=== PATIENT | female | born 1990 | race Caucasian/White ===

== ENCOUNTER 2019-11-10 12:27 | Outpatient (CLI) | payer OTHER, SELFPAY ==
[2019-11-10 12:47] LABS: Basophils Percent Auto 0.4 % (0.2-1.2); Eosinophils Absolute Auto 0.2 K/mm3 (0-0.3); Eosinophils Percent Auto 2.4 % (0-4.4); Hematocrit 32.3 % (37.0-47.0); Hemoglobin 10.5 g/dL (12.0-15.0); Immature Granulocyte Absolute 0.06 K/mm3 (0.00-0.031); Immature Granulocyte Percent A 0.8 % (0-0.5); Lymphocytes Absolute Auto 2.04 K/mm3 (0.9-3.2); Lymphocytes Percent Auto 27.8 % (18.3-44.2); Mean Corpuscular HGB Conc 32.5 g/dl (32-36); Mean Corpuscular Hemoglobin 27.9 pg (26-34); Mean Corpuscular Volume 85.9 fl (80-100); Mean Platelet Volume 9.9 fl (7.4-10.4); Monocytes Absolute Auto 0.7 K/mm3 (0.1-0.6); Monocytes Percent Auto 9.8 % (2.6-8.5); Neutrophils Absolute Auto 4.3 K/mm3 (1.3-6.7); Neutrophils Percent Auto 58.8 % (45.5-73.1); Platelet Count Result 267 k/mm3 (150-375); Red Blood Count 3.76 M/mm3 (4.2-5.4); Red Cell Distribution Width 12.8 % (11.5-14.5); White Blood Count 7.4 K/mm3 (4.5-10.0)
[2019-11-12 07:06] LABS: Rapid Plasma Reagin Non-Reactive (NonReactive)
== END 2019-11-10 12:28 | disposition home or self-care (01) ==
PROVIDERS: Visit Provider Obstetrics & Gynecology
DX: Z01.818 Encounter for other preprocedural examination (principal)
CPT/HCPCS: 36415; 85025; 86592; 86850; 86900; 86901

== ENCOUNTER 2019-11-12 09:46 | Inpatient (IN) | payer OTHER, SELFPAY ==
[2019-11-12] VITALS (62 sets, daily range): BP systolic 93–120; BP diastolic 56–90; PULSE 60–152; RESP 11–17; TEMP 36.4–36.7; O2SAT 90–100; BMI 27.3
[2019-11-12] MEDS: LACTATED RINGERS 1,000 ML 125 ML IV CONT ×2 (10:40→11:37)
--- NOTE | 2019-11-12 10:40 | WPDANESEPPF ---
Anes - Initial Pre Proc Eval Procedure: Operation Date: 11/12/19 12:00 Proposed Procedures p Repeat Section - Hola Vázquez MD Date/Time: 11/12/19 10:40 Surgeon: Hola Vázquez MD Pre Op Diagnosis: Scheduled Patient Data Age: 29 Gender: F Height: Weight: Last Vital Signs Pulse 76 11/12/19 10:31 BP 110/70 11/12/19 10:31 Allergies Allergy/AdvReac Type Severity Reaction Status Date / Time No Known Allergies Allergy Unverified 12/02/16 21:44 Home Medications Medication Instructions Recorded Confirmed Type PNV cmb#95-ferrous fumarate-FA 1 tablet PO DAILY 11/09/19 11/09/19 History [] Patient hx anesthesia problems: none Family hx anesthesia problems: none PMFSH Past Medical History Medical History Ex-smoker Surgical History Surgical History (Updated 11/12/19 @ 10:40 by Kalyan Hamilton MD) Previous delivery, delivered Family History Family History Daughter Asthma Mother Depression Social History Social History Substance use: never Gender identity (if verbalized by the patient): Female Spiritual care concerns: No Anes - Eval Final PreProcedure Day of Procedure 11/12/19 10:40 Patient weight: normal Heart: regular rate and rhythm Lungs: clear to auscultation Airway: Mallampati scale class II Neurological: alert and oriented Last oral intake: >/= 8 hours ASA classification: II Emergent: no Anesthetic plan: proceed Anesthesia type and monitoring: regional spinal and standard monitoring Informed Consent: The patient's anesthetic plan and its attendant risks and benefits were discussed with the patient/family/POA. Questions were solicited and answers provided to the satisfaction of the patient/family/POA.
--- NOTE | 2019-11-12 10:48 | LDADM ---
This patient, Tamika Dixon, was admitted to Labor/Delivery/Recovery 119 on 11/12/19 at 09:46. Plans for labor, pain management and were discussed with patient. Patient/family oriented to hospital policies and general routines including ID bracelet, bed and alarms, visiting hours, pain management, procedures, bathroom and other care routines, personal items, smoking policy, room service/diet and guest tray routines, infant security routines, and visiting hours. Patient/Family are encouraged to report perceived risks to care and to ask questions if they do not understand what they are told or what they should do. See OBIX for further documentation.
--- NOTE | 2019-11-12 10:49 | PM.IMHP ---
H&P: HPI History of Present Illness Chief complaint: Scheduled Narrative: Tamika Dixon is a 29 year old female with two previous deliveries presents for repeat section. PNC with Dr Rocha, labs/visits on chart. Discussed/offered tubal, declines. Review of Systems Review of Systems: All systems reviewed & are unremarkable except as noted in HPI and below PMFSH Past Medical History Medical History Ex-smoker Surgical History Surgical History Previous delivery, delivered Family History Family History Daughter Asthma Mother Depression Social History Social History Substance use: never Gender identity (if verbalized by the patient): Female Spiritual care concerns: No Meds Home Medications and Allergies Home Medications Medication Instructions Recorded Confirmed Type PNV cmb#95-ferrous fumarate-FA 1 tablet PO DAILY 11/09/19 11/09/19 History [] Allergies Allergy/AdvReac Type Severity Reaction Status Date / Time No Known Allergies Allergy Unverified 12/02/16 21:44 Vital Signs Vital Signs - 24 hr 11/12/19 10:07 11/12/19 10:16 11/12/19 10:31 Pulse Rate 73 85 76 Blood Pressure 113/76 111/74 110/70 11/12/19 10:46 Pulse Rate 80 Blood Pressure 109/74 Exam Const: General: no acute distress Resp: Auscultation: clear to auscultation bilaterally Cardio: Rate: regular rate Rhythm: regular rhythm GI: Other: FH 39cm. FHT 140 Assessment and Plan Assessment and plan (1) Term : Code(s): Z34.90 - Encounter for supervision of normal , unspecified, unspecified trimester Status: Acute (2) Previous delivery affecting : Code(s): O34.219 - Maternal care for unspecified type scar from previous delivery Status: Acute Additional Plan Repeat delivery.
[2019-11-12 11:54] LABS: Amphetamine Screen Urine Negative (Negative); Barbiturate Screen Urine Negative (Negative); Benzodiazepines Screen Urine Negative (Negative); Cannabinoid Screen Urine Negative (Negative); Cocaine Screen Urine Negative (Negative); Methadone Screen Urine Negative (Negative); Opiate Screen Urine Negative (Negative); Phencyclidine Screen Urine Negative (Negative)
--- NOTE | 2019-11-12 12:37 | P.PCNOB_ITS ---
OB - Delivery Note Procedure Delivery date: 11/12/19 Procedure: Procedures Operation Date: 11/12/19 12:00 <No data on this case meets the specified criteria> Route of delivery: Indication for instrumentation: other (Prior delivery x2) Specimen: No Estimated blood loss (mL): 300 Anesthesia type: Spinal Disposition: PACU Narrative: Patient prepped and draped in usual manner for this procedure. Pfannenstiel incision was made in the lower abdomen and extended to the fascia. Fascia was incised and extended bilaterally the skin incision. Bilaterally the rectus muscles were lifted and knife was used to enter the peritoneum. Bladder flap was developed uterus scored with clear fluid noted. Vertex was delivered with nuchal cord noted x1 and readily reduced. Rest of baby was the difficulty. Cord clamped cut then the manual removal of the placenta occurred. Uterus was exteriorized cleared of membranes and clots and closed using 0 Monocryl suture in a running interlocking manner with good approximation hemostasis noted. Ut erus returned to the abdomen gutters were cleared of serosanguineous fluid and clots and all subfascial tissue was noted be hemostatic. Fascia was approximated 0 Vicryl suture from left angle midline right angle right angle to midline. Subcutaneous tissue approximated using 0 plain suture and jovanni used to approximate skin edges patient are procedure well sent to recovery room stable condition. [place] Baby Weeks of gestation at delivery: 39 Infant gender: Male Weight (pounds): 7 Weight (ounces): 12 presentation: vertex score one minute: 8 score five minutes: 9
--- NOTE | 2019-11-12 13:32 | SUR.PHASEI ---
1310--reported PVC's to anesthesia. O2 administered.
--- NOTE | 2019-11-12 13:33 | SUR.PHASEI ---
1325 Reported frequent PVC's to anesthesia. Requested lead change. VSS. pt asymptomatic and holding , chatting with FOB.
[2019-11-12] MEDS: LORATADINE 10 MG TABLET PO (13:53)
[2019-11-12] MEDS: OXYTOCIN 30 UNITS/NS 500 ML 30 UNITS/500 ML BAG 125 UNITS (13:53)
[2019-11-12] MEDS: KETOROLAC 30 MG/ML VIAL (*BKC) IV PUSH (15:30)
[2019-11-12] MEDS: DEXTROSE 5%/0.45% SOD CHL 1,000 ML 125 ML IV CONT (17:59)
[2019-11-13] MEDS: ACETAMINOPHEN 325 MG TABLET 650 MG PO ×2 (00:10→06:53)
[2019-11-13 01:00] VITALS: BP 106/62; PULSE 83; RESP 14; TEMP 37; O2SAT 100
[2019-11-13 04:39] LABS: Basophils Percent Auto 0.3 % (0.2-1.2); Eosinophils Absolute Auto 0.1 K/mm3 (0-0.3); Eosinophils Percent Auto 1.3 % (0-4.4); Hematocrit 27.6 % (37.0-47.0); Hemoglobin 8.9 g/dL (12.0-15.0); Immature Granulocyte Absolute 0.04 K/mm3 (0.00-0.031); Immature Granulocyte Percent A 0.4 % (0-0.5); Lymphocytes Absolute Auto 1.49 K/mm3 (0.9-3.2); Lymphocytes Percent Auto 14.3 % (18.3-44.2); Mean Corpuscular HGB Conc 32.2 g/dl (32-36); Mean Corpuscular Hemoglobin 27.9 pg (26-34); Mean Corpuscular Volume 86.5 fl (80-100); Monocytes Absolute Auto 0.8 K/mm3 (0.1-0.6); Monocytes Percent Auto 7.8 % (2.6-8.5); Neutrophils Absolute Auto 7.9 K/mm3 (1.3-6.7); Neutrophils Percent Auto 75.9 % (45.5-73.1); Platelet Count Result 207 k/mm3 (150-375); Red Blood Count 3.19 M/mm3 (4.2-5.4); Red Cell Distribution Width 12.9 % (11.5-14.5); White Blood Count 10.4 K/mm3 (4.5-10.0)
[2019-11-13 05:05] VITALS: BP 107/61; PULSE 72; RESP 16; TEMP 37; O2SAT 99
[2019-11-13] MEDS: POLYSACCHARIDE IRON COMPLEX 150 MG CAPSULE PO ×2 (06:53→16:29)
[2019-11-13] MEDS: IBUPROFEN 600 MG TABLET PO ×3 (06:54→19:34)
[2019-11-13] MEDS: SIMETHICONE 80 MG TAB.CHEW PO ×2 (06:54→16:28)
[2019-11-13] MEDS: DOCUSATE SODIUM 100 MG CAPSULE PO ×2 (06:54→16:29)
[2019-11-13 06:56] VITALS: BP 109/63; PULSE 72; RESP 18; TEMP 36.6; O2SAT 100
--- NOTE | 2019-11-13 07:45 | WPDANLDPN2 ---
Anes-Prog Note L&D Date/Time: 11/13/19 07:45 Comfortable throughout: section Neuraxial method: spinal Epidural/Spinal procedure site: clean & non-tender Neuro status: Neuro function grossly intact. Cardiovascular status: normal Respiratory status: normal Airway patency: baseline Mental status: baseline Post-Op hydration status: normal Vital Signs: Last Vital Signs Temp 36.6 C 11/13/19 06:56 Pulse 72 11/13/19 06:56 Resp 18 11/13/19 06:56 BP 109/63 11/13/19 06:56 Pulse Ox 100 11/13/19 06:56 I/O: Intake & Output 11/12/19 11/12/19 11/13/19 15:59 23:59 07:59 Intake Total 1100 1300 Output Total 100 1600 Balance 1000 -300 Post-procedural complaints: none Patient feedback: Patient satisfied with anesthetic care.
--- NOTE | 2019-11-13 07:45 | WPDANLDNPN2 ---
Anes-Prog Note L&D-Neuraxial Date/Time: 11/13/19 07:45 Neuraxial medications: intrathecal PF morphine Opiod-related complaints: none Patient feedback: Patient satisfied with post-operative pain management.
--- NOTE | 2019-11-13 08:53 | PM.OBDSVD ---
DS: Diagnosis Admitting Diagnosis Admitting Diagnosis: Encounter for supervision of normal , unspecified, unspecified trimester OB - DS: Summary OB Procedures : None OB Procedures Intrapartum: OB Procedures: : None Peripartum Data Procedures: Procedures Operation Date: 11/12/19 12:00 Actual Procedures Side Surgeon p Repeat Section Not Applicable Hola Vázquez MD Time Spent with Patient Time attestation: Total time spent providing and/or coordinating discharge services: DS: Data Data Completed and Pending Labs on day of discharge: Labs from last 24 hours 11/13/19 11/12/19 04:20 11:23 WBC 10.4 H RBC 3.19 L Hgb 8.9 L Hct 27.6 L MCV 86.5 MCH 27.9 MCHC 32.2 RDW 12.9 Plt Count 207 MPV 10.0 Immature Gran % (Auto) 0.4 Neut % (Auto) 75.9 H Lymph % (Auto) 14.3 L [place] % (Auto) 7.8 Eos % (Auto) 1.3 Baso % (Auto) 0.3 Lymph # (Auto) 1.49 [place] # (Auto) 0.8 H Eos # (Auto) 0.1 Baso # (Auto) 0.0 Abs Immat Gran (auto) 0.04 H Absolute Neuts (auto) 7.9 H Absolute Nucleated RBC 0.0 Nucleated RBC % 0.0 Urine Opiates Screen Negative Urine Methadone Screen Negative Ur Barbiturates Screen Negative Ur Phencyclidine Scrn Negative Ur Amphetamine Screen Negative U Benzodiazepines Scrn Negative Urine Cocaine Screen Negative U Cannabinoids Screen Negative Discharge Plan Discharge Discharging Clinician: Hola Vázquez Patient Disposition: Home, Self-Care Activity: as tolerated Diet: as tolerated Wound Care Instructions: incision open to air Discharge Instructions: office tuesday for staple removal Patient Instructions: Antibiotic Form Stand Alone Forms: General Discharge Information Follow-up/Referrals: Hola Vázquez MD [Physician] - 3 Weeks Discharge Medications: New hydrocodone-acetaminophen 5-325 mg Tablet 1 tablet PO Q3H PRN (Reason: Moderate Pain (4-6)) Qty: 20 RF: 0 ibuprofen 600 mg Tablet 600 mg PO Q6H PRN (Reason: Cramping) Qty: 30 RF: 0 Continued PNV cmb#95-ferrous fumarate-FA [] 28 mg iron- 800 mcg Tablet 1 tablet PO DAILY RF: 0 Date of admission: 11/12/19 09:46 Primary Care Provider: UNKNOWN,DOCTOR Admitting Provider: Hola Vázquez Attending physician on admission: Hola Vázquez
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
[2019-11-13 11:30] VITALS: BP 109/71; PULSE 84; RESP 18; TEMP 36.8; O2SAT 99
[2019-11-13 12:00] VITALS: BP 110/61; PULSE 93; RESP 18; TEMP 36.7; O2SAT 100
[2019-11-13 19:50] VITALS: BP 105/67; PULSE 84; RESP 16; TEMP 36.9; O2SAT 98
[2019-11-14] MEDS: IBUPROFEN 600 MG TABLET PO ×2 (01:14→07:01)
[2019-11-14] MEDS: DOCUSATE SODIUM 100 MG CAPSULE PO (06:59)
[2019-11-14] MEDS: SIMETHICONE 80 MG TAB.CHEW PO (06:59)
[2019-11-14] MEDS: POLYSACCHARIDE IRON COMPLEX 150 MG CAPSULE PO (07:01)
[2019-11-14 07:09] VITALS: BP 125/76; PULSE 79; RESP 18; TEMP 36.4; O2SAT 100
--- NOTE | 2019-11-14 07:21 | PC.NURSE ---
Patient viewed the discharge video Mother & Baby Care, The First Two Weeks . Patient was given the opportunity and encouraged to ask questions. Patient verbalized understanding of information shared and has been given the mother/baby guide for home reference.
--- NOTE | 2019-11-14 09:27 | PM.OBDSVD ---
DS: Diagnosis Admitting Diagnosis Admitting Diagnosis: Encounter for supervision of normal , unspecified, unspecified trimester OB - DS: Summary OB Procedures : None OB Procedures Intrapartum: OB Procedures: : None Peripartum Data Procedures: Procedures Operation Date: 11/12/19 12:00 Actual Procedures Side Surgeon p Repeat Section Not Applicable Hola Vázquez MD Time Spent with Patient Time attestation: Total time spent providing and/or coordinating discharge services: Discharge Plan Discharge Consulting providers: Aquiles Palmer Discharging Clinician: Hola Vázquez Patient Disposition: Home, Self-Care Activity: as tolerated Diet: as tolerated Wound Care Instructions: incision open to air Discharge Instructions: office tuesday for staple removal Education: Mom and Baby Guide Given to: Mother Follow-Up: Call your delivering provider's office for an appointment to be seen in: 3 Week Mom and baby should come to the [facility] for the follow-up appointment. Appointment Date/Time: November 15, 2019 at 11:00 am What to expect at your follow-up visit: Blood Pressure Check Physical Assessment Removal of Reshma Call [phone] if you are unable to keep your appointment time. BREAST CARE: 1. Wear a snug supportive bra Bottle Feeding: A. May apply ice packs ABDOMINAL INCISION: (if applicable) 1. Allow incision to air dry 2. Do NOT use lotions for powders on your incision 3. When showering, allow soap and water to run over the incision, but do not wash incision PERINEAL CARE: 1. Until bleeding stops, use your gabriel bottle after urinating 2. Change your pad frequently throughout the day 3. You may take sitz baths several times a day (fill your bathtub with warm water and soak for 20 minutes.) Do NOT bathe in the water 4. No tub baths until seen by your physician - You may shower ACTIVITY: 1. Rest as much as possible. 2. Do not exercise or lift anything heavier than your baby (such as laundry or other children.) 3. Avoid stairs or driving as much as possible. 4. Do not put anything into the vagina. No douching, tampons, or sexual activity until seen by physician. NOTIFY PHYSICIAN IF YOU HAVE ANY QUESTIONS OR IF ANY OF THE FOLLOWING SYMPTOMS OCCUR: 1. If your incision becomes red, swollen, or more painful than what you have experienced in the hospital. 2. If your vaginal bleeding becomes foul smelling. 3. If your vaginal bleeding becomes more heavy than a period or if your bleeding changes from pink to bright red. However, you may pass an occasional walnut-sized clot once or twice for the first week . 4. If you experience a sharp, shooting pain in you calves. 5. If you discover a hard, reddened area on your breast or if you experience flu-like symptoms. DIET: 1. Eat regular, well-balanced meals. 2. Drink plenty of fluids daily. If , drink to thirst. Stand Alone Forms: General Discharge Information Follow-up/Referrals: Hola Vázquez MD [Physician] - 3 Weeks Discharge Medications: New hydrocodone-acetaminophen 5-325 mg Tablet 1 tablet PO Q3H PRN (Reason: Moderate Pain (4-6)) Qty: 20 RF: 0 ibuprofen 600 mg Tablet 600 mg PO Q6H PRN (Reason: Cramping) Qty: 30 RF: 0 Continued PNV cmb#95-ferrous fumarate-FA [] 28 mg iron- 800 mcg Tablet 1 tablet PO DAILY RF: 0 Date of admission: 11/12/19 09:46 Primary Care Provider: PHYSICIAN,FLIGHT ENGINEER MANAGER Admitting Provider: Hola Vázquez Attending physician on admission: Hola Vázquez
--- NOTE | 2019-11-14 09:41 | PC.NURSE ---
Self care and infant care discharge instructions given to pt. including follow up instructions. Pt. verbalized understanding. No questions or concerns voiced. Very pleasant and cooperative. FOB at side.
[2019-11-16 11:02] VITALS: BP 114/78; PULSE 77; RESP 16; TEMP 37.4; O2SAT 99
== END 2019-11-14 12:17 | disposition home or self-care (01) | DRG 540 ==
LOC: ANHLDR 09:52 → ANHOB2 15:04
PROVIDERS: Admitting Provider Obstetrics & Gynecology; Visit Provider Obstetrics & Gynecology
PROC: 10D00Z1 Extraction of Products of Conception, Low, Open Approach (ICD-10-PCS; CPT 59514; principal; 2019-11-12 12:00)
DX: O34.211 Maternal care for low transverse scar from previous cesarean delivery (principal); Z37.0 Single live birth; Z3A.39 39 weeks gestation of pregnancy
CPT/HCPCS: 36415; 80307; 85025; A9270; J0131; J1885; J2274; J2590; J3010; J7120

== ENCOUNTER 2022-03-21 12:33 | Emergency (ER) | payer OTHER, SELFPAY ==
[2022-03-21] VITALS (13 sets, daily range): BP systolic 103–135; BP diastolic 61–77; PULSE 77; RESP 16; TEMP 36.7; O2SAT 97–100
--- NOTE | ~2022-03-21 | US_ITS ---
US OB <= 14 weeks fetus DATE: 03/21/2022 13:42 INDICATION: Vaginal bleeding TECHNIQUE: Real-time imaging via transabdominal approach COMPARISON: None FINDINGS: The uterus measures approximately 9.6 cm height, up to approximately 4.9 cm AP dimension. A normally shaped intrauterine gestational sac is identified, with single pole. However, no feta l cardiac motion is demonstrated. [place]-rump length measures 1.75 cm Tomosynthesis with estimated gestational age of 8 weeks 1 days +/- 5 days . No pelvic mass or abnormal pelvic fluid collection is detected. IMPRESSION: Absence of cardiac motion, consistent with demise at estimated gestational ag e of 8 weeks 1 day +/- 5 days Reviewed, dictated and finalized at [facility] Reviewed, dictated and finalized at [facility]. IMPRESSION: Absence of cardiac motion, consistent with demise at es timated gestational age of 8 weeks 1 day +/- 5 days
[2022-03-21 13:08] LABS: Basophils Percent Auto 0.3 % (0.2-1.2); Eosinophils Absolute Auto 0.2 K/mm3 (0-0.3); Eosinophils Percent Auto 1.6 % (0-4.4); Hemoglobin 13.4 g/dL (12.0-15.0); Immature Granulocyte Absolute 0.04 K/mm3 (0.00-0.031); Immature Granulocyte Percent A 0.3 % (0-0.5); Lymphocytes Percent Auto 19.9 % (18.3-44.2); Mean Corpuscular HGB Conc 33.5 g/dl (32-36); Mean Corpuscular Hemoglobin 30.9 pg (26-34); Mean Corpuscular Volume 92.4 fl (80-100); Mean Platelet Volume 9.9 fl (7.4-10.4); Monocytes Absolute Auto 0.7 K/mm3 (0.1-0.6); Monocytes Percent Auto 5.4 % (2.6-8.5); Neutrophils Absolute Auto 8.7 K/mm3 (1.3-6.7); Neutrophils Percent Auto 72.5 % (45.5-73.1); Platelet Count Result 251 k/mm3 (150-375); Red Blood Count 4.33 M/mm3 (4.2-5.4); Red Cell Distribution Width 13.3 % (11.5-14.5); White Blood Count 12.1 K/mm3 (4.5-10.0)
--- NOTE | 2022-03-21 13:12 | ED.FEMALEGU ---
HPI - Female Genitourinary General Chief complaint: Vaginal Bleeding Stated complaint: 11weeks and bleeding. Time Seen by Provider: 03/21/22 13:07 Source: patient and RN notes reviewed Mode of arrival: ambulatory Limitations: no limitations History of Present Illness HPI Narrative: 31 years old white female drove herself to the emergency room because of vaginal bleeding and started prior to arrival to the emergency room. Patient reports lower abdominal cramps all night long. Patient is 11 weeks , 4 para 3 0. History of anxiety, she does smoke and uses marijuana, denies drinking. Related Data Home Medications Medication Instructions Recorded Confirmed vit no.95-ferrous 1 tablet PO DAILY 11/09/19 03/02/22 fumarate 28 mg-folic acid 800 mcg tablet () Allergies Allergy/AdvReac Type Severity Reaction Status Date / Time No Known Allergies Allergy Unverified 03/02/22 08:55 Review of Systems Review of Systems: All systems reviewed & are unremarkable except as noted in HPI and below PMFSH Past Medical History Medical History Depression Ex-smoker Trichomonas vaginalis (TV) infection Surgical History Surgical History History of 03/31/11 primary--umbilical cord around head 08/11/12 rpt c/s 11/12/19 rpt c/s Family History Family History Daughter Asthma Mother Depression Grandparent Hypertension paternal grandfather Malignant tumor of ovary paternal grandmother Social History Social History Smoking status: Current every day smoker Tobacco type: cigarettes Alcohol intake: never Substance use: current Substance use type: marijuana Other substance usage details: daily Additional living arrangements comments: Additional occupation/education comments: daycare Gender identity (if verbalized by the patient): Female Sexual Orientation (if Verbalized by the Patient): Bisexual Spiritual care concerns: No Exam Narrative: General appearance: Well-developed, well-nourished Skin: Normal color Head: Normocephalic, nontraumatic Eyes: Clear conjunctiva ENT: Oropharynx normal, ears normal, nose normal Neck: Supple, nontender Chest and respiratory: Airway patent, no respiratory distress, no accessory muscle use Heart: Regular rate/rhythm Abdomen: Soft, nontender, no organomegaly, quiet bowel sounds Vascular: Normal peripheral pulses, normal capillary refill. Musculoskeletal: Normal range of motion, nontender back Neurologic: Alert and oriented ?3, WOOL MIXER is normal as tested, no gross motor deficit : External Female Exam: normal external appearance Speculum Exam - Vagina: normal appearance of the vagina and vaginal bleeding (For long Q-tips, fully saturated with blood, slight blood leaking out ) Speculum Exam - Cervix: normal appearance of the cervix and Cervical os closed Bimanual Exam- Adnexa, other: no masses Course Consultations Consultation #1: Dr. Biggs Date: 03/21/22 Time: 14:45 Vital Signs Vital signs: Vital Signs Temperature 36.7 C 03/21/22 12:38 Pulse Rate 77 03/21/22 12:38 Respiratory Rate 16 03/21/22 12:38 Blood Pressure 135/77 03/21/22 12:38 Pulse Oximetry 100 03/21/22 12:38 Oxygen Delivery Room Air 03/21/22 12:38 Temperature 36.7 C 03/21/22 12:38 Pulse Rate 77 03/21/22 12:38 Respiratory Rate 16 03/21/22 12:38 Blood Pressure 135/77 03/21/22 12:38 Pulse Oximetry
[2022-03-21] MEDS: SODIUM CHLORIDE 0.9% IV 1,000 ML 999 ML IV CONT (14:52)
== END 2022-03-21 16:19 | disposition home or self-care (01) ==
PROVIDERS: Emergency Provider Emergency Medicine
DX: O03.4 Incomplete spontaneous abortion without complication (principal); Z3A.11 11 weeks gestation of pregnancy; O99.321 Drug use complicating pregnancy, first trimester; F12.90 Cannabis use, unspecified, uncomplicated; O99.330 Smoking (tobacco) complicating pregnancy, unspecified trimester; F17.210 Nicotine dependence, cigarettes, uncomplicated
CPT/HCPCS: 36415; 76801; 84702; 85025; 85461; 96360; 99284; J7030

== ENCOUNTER 2022-04-02 01:41 | Day surgery (SDC) | payer OTHER, SELFPAY ==
[2022-03-29 15:14] VITALS: BMI 20.1
--- NOTE | 2022-04-02 08:00 | P.PNAN_ITS ---
Anes - Initial Pre Proc Eval Procedure: Operation Date: 04/02/22 12:00 Proposed Procedures p Suction Dilation and Curettage - Hola Vázquez MD Date/Time: 04/02/22 08:00 Surgeon: Hola Vázquez MD Pre Op Diagnosis: Missed AB Patient Data Age: 31 Gender: F Height: 1.57 m Weight: 50 kg Allergies Allergy/AdvReac Type Severity Reaction Status Date / Time No Known Allergies Allergy Unverified 04/02/22 10:24 Home Medications Medication Instructions Recorded Confirmed Type No Home Medications 03/29/22 04/02/22 History Patient hx anesthesia problems: none Family hx anesthesia problems: none Results Review: All pre-operative results and documents have been reviewed as part of the pre- operative evaluation. [facility] Past Medical History Medical History Depression Ex-smoker Trichomonas vaginalis (TV) infection Surgical History Surgical History History of 03/31/11 primary--umbilical cord around head 08/11/12 rpt c/s 11/12/19 rpt c/s Family History Family History Daughter Asthma Mother Depression Grandparent Hypertension paternal grandfather Malignant tumor of ovary paternal grandmother Social History Social History Smoking packs per day: 0.5 Smoking cigarettes per day: 10.0 Years smoked: 15 Smoking pack-years: 7.50 Smoking status: Current every day smoker Tobacco type: cigarettes Alcohol intake: never Substance use: never Substance use type: marijuana Other substance usage details: daily Living arrangements: with family Additional living arrangements comments: Additional occupation/education comments: daycare Gender identity (if verbalized by the patient): Female Sexual Orientation (if Verbalized by the Patient): Bisexual Spiritual care concerns: No Anes - Eval Final PreProcedure Day of Procedure 04/02/22 08:00 Patient weight: normal Heart: regular rate and rhythm Lungs: clear to auscultation Airway: Mallampati scale class II Neurological: alert and oriented Last oral intake: >/= 8 hours ASA classification: II Emergent: no Anesthetic plan: proceed Anesthesia type and monitoring: general LMA and standard monitoring Results Review: All pre-operative results and documents have been reviewed as part of the pre- operative evaluation. Informed Consent: The patient's anesthetic plan and its attendant risks and benefits were discussed with the patient/family/POA. Questions were solicited and answers provided to the satisfaction of the patient/family/POA.
--- NOTE | 2022-04-02 08:49 | PM.IMHP ---
H&P: HPI History of Present Illness Date/Time: 04/02/22 08:49 31-year-old 4 para 3 0 now 1 3 female presents for surgical management of incomplete miscarriage. Was seen emergency room last week with 8 week intrauterine no cardiac activity, has significant bleeding cramping and likely passed the bulk of the tissue in the next 48hours. Has continue with cramping and bleeding since that time and therefore presents today for uterine evacuation. Chief Complaint: Incomplete miscarriage in the 1st trimester Review of Systems Review of Systems: All systems reviewed & are unremarkable except as noted in HPI and below PMFSH Past Medical History Medical History Depression Ex-smoker Trichomonas vaginalis (TV) infection Surgical History Surgical History History of 03/31/11 primary--umbilical cord around head 08/11/12 rpt c/s 11/12/19 rpt c/s Family History Family History Daughter Asthma Mother Depression Grandparent Hypertension paternal grandfather Malignant tumor of ovary paternal grandmother Social History Social History Smoking packs per day: 0.5 Smoking cigarettes per day: 10.0 Years smoked: 15 Smoking pack-years: 7.50 Smoking status: Current every day smoker Tobacco type: cigarettes Alcohol intake: never Substance use: never Substance use type: marijuana Other substance usage details: daily Living arrangements: with family Additional living arrangements comments: Additional occupation/education comments: daycare Gender identity (if verbalized by the patient): Female Sexual Orientation (if Verbalized by the Patient): Bisexual Spiritual care concerns: No Meds Home Medications and Allergies Home Medications Medication Instructions Recorded Confirmed Type No Home Medications 03/29/22 03/29/22 History Allergies Allergy/AdvReac Type Severity Reaction Status Date / Time No Known Allergies Allergy Unverified 03/25/22 10:39 Exam Const: General: cooperative, healthy appearing and comfortable Resp: Effort & Inspection: normal respiratory effort Auscultation: clear to auscultation bilaterally Cardio: Rate: regular rate Rhythm: regular rhythm GI: Inspection: normal to inspection Auscultation: normal bowel sounds : External Female Exam: normal external appearance Speculum Exam - Vagina: normal appearance of the vagina Speculum Exam - Cervix: normal appearance of the cervix Bimanual exam- vagina & uterus: enlarged ( 8 week size) Bimanual Exam- Adnexa, other: normal adnexae Assessment and Plan Assessment and plan (1) Incomplete miscarriage: Code(s): O03.4 - Incomplete spontaneous without complication Status: Acute Assessment and Plan: 1st trimester incomplete miscarriage which will be managed with suction curettage.
[2022-04-02 10:08] VITALS: BP 109/66; PULSE 82; RESP 18; TEMP 37; O2SAT 100
[2022-04-02] MEDS: ACETAMINOPHEN 500 MG TABLET 1000 MG PO (10:49)
[2022-04-02] MEDS: LACTATED RINGERS 1,000 ML 30 ML IV CONT (10:49)
--- NOTE | 2022-04-02 11:24 | WPDHPUPDATE1 ---
History and Physical Update Update Date/Time: 04/02/22 11:24 History and Physical has been reviewed, including an updated exam of the patient. There are NO changes in the patient's condition. Risks, benefits, and alternatives have been discussed and questions answered. Patient agrees to proceed with procedure.
[2022-04-02] MEDS: LIDOCAINE HCL 1% LOCAL INJ 20 ML VIAL 10 ML INFILTRATE (12:19)
--- NOTE | 2022-04-02 12:23 | W.PM.PROC2 ---
Procedure Note - Detailed Date of Procedure 04/02/22 Pre-op Diagnosis First trimester incomplete miscarriage Post-op Diagnosis Same Procedure Performed Suction curettage Surgeon Hola Vázquez MD Anesthesia MAC Findings Moderate products of conception Description of Procedure Patient prepped in usual manner as procedure. Cervix dilated to allow the 9mm suction curette to be placed. Once this was placed moderate amount of products of conception removed. Suction curette after sharp curette revealed no further tissue and no bleeding. At this point patient was sent to recovery room in stable condition. Estimated Blood Loss 50 Drains No Packing No Pathology Yes Complications No immediate complications Condition Stable Disposition PACU [facility] Billing Surgery - Charge Forward: Surgery Billing
[2022-04-02 12:27] VITALS: BP 97/64; PULSE 65; RESP 12; O2SAT 98
--- NOTE | 2022-04-02 12:35 | SUR.PHASEII ---
PATIENT IS O POSITIVE.
[2022-04-02 12:55] VITALS: BP 99/79; PULSE 56; RESP 12; O2SAT 96
[2022-04-02 13:15] VITALS: BP 97/65; PULSE 79; RESP 12; O2SAT 99
[2022-04-02 13:45] VITALS: BP 108/67; PULSE 59; RESP 20
[2022-04-02 14:05] VITALS: BP 100/65; PULSE 55; RESP 20
== END 2022-04-02 14:12 | disposition home or self-care (01) ==
PROVIDERS: Visit Provider Obstetrics & Gynecology
PROC: (CPT 59812; principal; 2022-04-02 12:00)
DX: O03.4 Incomplete spontaneous abortion without complication (principal); F17.210 Nicotine dependence, cigarettes, uncomplicated; F12.90 Cannabis use, unspecified, uncomplicated
CPT/HCPCS: 59812; 88305; A9270; J2250; J2704; J3010; J7120

== ENCOUNTER 2022-08-09 21:37 | Emergency (ER) | payer OTHER, SELFPAY ==
--- NOTE | ~2022-08-09 | US_ITS ---
EXAMINATION: US OB <=14 wk fetus w TV INDICATION: eval for ectopic, vaginal bleeding, pain, +preg TECHNIQUE: Sonography of the pelvis was performed by transabdominal and transvaginal techniques. COMPARISON: 03/21/2022. RESULT: Uterus: Orientation: Anteverted. 10.1 x 5.4 x 6.1 cm. Myometrium: homogeneous echogenicity. Gestation: - Intrauterine gestational sac: Single present. Somewhat irregular appearing gestational sac. - Embryo: Single present. - Hector rump length: 1.7 cm, corresponding gestational age 8 weeks, 1 days. -Gestational heart rate: Absent. -Subgestational hematoma: Irregular, isoechoic material along the inferior aspect of the gesta tional sac, measuring 1.3 x 2.1 cm, possibly extending into the endometrial canal which may represent subgestational hematoma . Right ovary: 4.0 x 2.3 x 2.5 cm. Normal sonographic appearance with physiologic follicles. . 1.3 c m simple cyst. Left ovary: 3.2 x 1.6 x 1.5 cm. Normal sonographic appearance with physiologic follicles. . . Pelvis free fluid: None. IMPRESSION: Sonographic findings of failure. Reviewed, dictated and finalized at location [facility] [employer]
[2022-08-09 21:39] VITALS: BP 127/67; PULSE 82; RESP 16; TEMP 37.1; O2SAT 100
--- NOTE | 2022-08-09 21:48 | ED.PREGNANCY ---
HPI - General Chief complaint: Vaginal Bleeding Stated complaint: bleeding, +HCG 2 days ago Time Seen by Provider: 08/09/22 21:44 History of Present Illness HPI Narrative: Patient is a 31-year-old female G5, P3 presenting with vaginal bleeding. Patient states that her last menstrual period was May 29. She states that she had a positive test 4 to 5 days ago. Today she developed vaginal bleeding. States it is bright red. States it is associated with abdominal discomfort. States her first OB appointment is in about a week. Patient states that she has had multiple miscarriages in the past. No fevers or chills, chest pain, shortness of breath, vomiting, diarrhea, dysuria. Related Data Allergies Allergy/AdvReac Type Severity Reaction Status Date / Time No Known Allergies Allergy Verified 04/20/22 09:46 Review of Systems Review of Systems: All systems reviewed & are unremarkable except as noted in HPI and below PMFSH Past Medical History Medical History Depression Ex-smoker Trichomonas vaginalis (TV) infection Surgical History Surgical History History of 03/31/11 primary--umbilical cord around head 08/11/12 rpt c/s 11/12/19 rpt c/s History of gynecological procedure (04/02/22) suction D&C missed AB Family History Family History Daughter Asthma Mother Depression Grandparent Hypertension paternal grandfather Malignant tumor of ovary paternal grandmother Social History Social History Smoking packs per day: 0.5 Smoking cigarettes per day: 10.0 Years smoked: 15 Smoking pack-years: 7.50 Smoking status: Current every day smoker Tobacco type: cigarettes Alcohol intake: never Substance use: never Substance use type: marijuana Other substance usage details: daily Living arrangements: with family Additional living arrangements comments: 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 HEAD: Normocephalic, atraumatic. EYES: PERRLA and EOMI. ENT: Nares clear, no rhinorrhea or epistaxis. Mucous membranes moist. NECK: Supple. CHEST: Clear to auscultation. No respiratory distress. HEART: Regular rate and rhythm. No murmur heard. Normal peripheral pulses. ABDOMEN: Soft, nontender, nondistended, normal active bowel sounds. EXTREMITIES: Normal range of motion. No edema. SKIN: Warm, dry, no rash. NEURO: No focal deficits. Alert and oriented x3. PSYCH: Normal mood and affect. Course Vital Signs Vital signs: Vital Signs Temperature 98.8 F 08/09/22 21:39 Pulse Rate 82 08/09/22 21:39 Respiratory Rate 16 08/09/22 21:39 Blood Pressure 127/67 08/09/22 21:39 Pulse Oximetry 100 08/09/22 21:39 Temperature 98.8 F 08/09/22 21:39 Pulse Rate 82 08/09/22 21:39 Respiratory Rate 16 08/09/22 21:39 Blood Pressure 127/67 08/09/22 21:39 Pulse Oximetry 100 08/09/22 21:39 MDM - OB/Uterine Contractions MDM Narrative Medical decision making narrative: Patient is a 31-year-old female presenting with vaginal bleeding in the setting of early . Vitals are within normal limits. Exam is remarkable for the above. Blood work with elevated beta hCG. Hemoglobin is stable. Patient's blood type is O+. Transvaginal ultrasound shows fetus of approximately 8 weeks gestational age with no cardiac activity. Consistent with failed . Discussed the findings with the patient. Advised that she follow-up closely with
[2022-08-09 22:13] LABS: Basophils Percent Auto 0.4 % (0.2-1.2); Eosinophils Absolute Auto 0.3 K/mm3 (0-0.3); Eosinophils Percent Auto 2.4 % (0-4.4); Hematocrit 38.6 % (37.0-47.0); Immature Granulocyte Absolute 0.03 K/mm3 (0.00-0.031); Immature Granulocyte Percent A 0.3 % (0-0.5); Lymphocytes Absolute Auto 3.49 K/mm3 (0.9-3.2); Lymphocytes Percent Auto 32.8 % (18.3-44.2); Mean Corpuscular HGB Conc 33.7 g/dl (32-36); Mean Corpuscular Volume 92.1 fl (80-100); Mean Platelet Volume 9.7 fl (7.4-10.4); Monocytes Absolute Auto 0.7 K/mm3 (0.1-0.6); Monocytes Percent Auto 6.3 % (2.6-8.5); Neutrophils Absolute Auto 6.2 K/mm3 (1.3-6.7); Neutrophils Percent Auto 57.8 % (45.5-73.1); Platelet Count Result 237 k/mm3 (150-375); Red Blood Count 4.19 M/mm3 (4.2-5.4); White Blood Count 10.6 K/mm3 (4.5-10.0)
[2022-08-10 00:05] VITALS: BP 108/72; PULSE 80; RESP 16; O2SAT 98
== END 2022-08-10 00:05 | disposition home or self-care (01) ==
PROVIDERS: Emergency Medicine; Emergency Provider Emergency Medicine; PCP Internal Medicine Infectious Disease
DX: O03.9 Complete or unspecified spontaneous abortion without complication (principal); F17.210 Nicotine dependence, cigarettes, uncomplicated
CPT/HCPCS: 36415; 76801; 76817; 84702; 85025; 85461; 86850; 86900; 86901; 99284